=== PATIENT | male | born 1990 | race Caucasian/White ===

== ENCOUNTER 2024-02-14 17:46 | Emergency (ER) | payer OTHER ==
[~2024-02-14] VITALS: Ht 182.9 cm; Wt 122.0 kg
[2024-02-14 17:47] VITALS: BP 131/60; TEMP 97.3
[2024-02-14 19:40] LABS: BASO # 0.1 10^3/uL (0.0-0.2); BASO % 0.5 % (0.0-1.0); EOS # 0.2 10^3/uL (0.0-0.5); EOS % 2.2 % (0.0-3.0); HEMATOCRIT 38.9 % (42.0-52.0); HEMOGLOBIN 13.7 g/dl (13.5-17.5); LYMPH # 2.1 10^3/uL (1.5-5.0); LYMPH % 21.5 % (24.0-44.0); MEAN CORPUSCULAR HEMOGLOBIN 32.3 pg (27.0-33.0); MEAN CORPUSCULAR HGB CONC 35.2 g/dl (32.0-36.5); MEAN CORPUSCULAR VOLUME 91.7 fl (80.0-96.0); MONO # 0.8 10^3/uL (0.0-0.8); MONO % 8.2 % (2.0-8.0); NEUTROPHILS # 6.7 10^3/uL (1.5-8.5); NEUTROPHILS % 67.1 % (36.0-66.0); PLATELET COUNT, AUTOMATED 208 10^3/uL (150-450); RED BLOOD COUNT 4.24 10^6/uL (4.30-6.10); WHITE BLOOD COUNT 9.9 10^3/uL (4.0-10.0)
[2024-02-14] MEDS: NS 1,000 ML IV ONE (19:46)
[2024-02-14] MEDS: MORPHINE 2 MG/ML 1ML VIAL IV ONE (19:46)
[2024-02-14] MEDS: FAMOTIDINE IV BAG 20 MG in IV 1 EA IV ONE (19:47)
[2024-02-14 19:55] LABS: LIPASE 101 U/L (12-53)
[2024-02-14 19:58] LABS: ALBUMIN 4.4 G/DL (3.2-5.2); ALKALINE PHOSPHATASE 50 U/L (46-116); ALT/SGPT 65 U/L (7.0-40); AST/SGOT 24 U/L (<34); BILIRUBIN,DIRECT 0.2 MG/DL (<0.4); BILIRUBIN,TOTAL 0.7 MG/DL (0.3-1.2); BLOOD UREA NITROGEN 19 MG/DL (9-23); CALCIUM LEVEL 9.4 MG/DL (8.5-10.1); CARBON DIOXIDE LEVEL 24 MMOL/L (20-31); CHLORIDE LEVEL 108 MMOL/L (98-107); CREATININE FOR GFR 1.13 MG/DL (0.70-1.30); GLOMERULAR FILTRATION RATE > 60.0 (>60); GLUCOSE, FASTING 84 MG/DL (60-100); POTASSIUM SERUM 4.2 MMOL/L (3.5-5.1); SODIUM LEVEL 138 MMOL/L (136-145); TOTAL PROTEIN 7.3 G/DL (5.7-8.2)
[2024-02-14 20:26] LABS: AMYLASE 109 U/L (30-118)
[2024-02-14 20:45] VITALS: O2SAT 98
[2024-02-14] MEDS ORDERED: ISOVUE-370 76% 100ML VIAL As Ordered ONE (21:42)
[2024-02-14] MEDS: MAALOX 30 ML SUSP *UDC PO ONE (23:35)
[2024-02-14] MEDS: LIDOCAINE VISCOUS 2% SOLN 15ML UDC PO ONE (23:35)
[2024-02-15] MEDS ORDERED: OMEP40CA4 PO (00:55)
== END 2024-02-15 01:30 | disposition home or self-care (01) ==
LOC: M ED 17:46
DX: K21.9 Gastro-esophageal reflux disease without esophagitis (principal); R10.13 Epigastric pain
CPT/HCPCS: 74177; 76705; 80048; 80076; 82150; 83690; 84484; 85025; 93005; 96365; 96366; 96374; 99284; Q9967; S0028